=== PATIENT | female | born 1955 | race Caucasian/White ===

== ENCOUNTER → 2023-06-02 | Outpatient (CLI) | payer MEDICARE ==
[2023-06-03 04:04] LABS: INR 3.11 sec (0.93-1.11); Prothrombin Time 31.2 sec (9.9-11.9)
== END | disposition home or self-care (01) ==
LOC: LABWHC1 14:04
DX: Z51.81 Encounter for therapeutic drug level monitoring (principal); I82.890 Acute embolism and thrombosis of other specified veins; Z79.01 Long term (current) use of anticoagulants
CPT/HCPCS: 36415; 85610

== ENCOUNTER → 2023-06-09 | Outpatient (CLI) | payer MEDICARE ==
[2023-06-09 20:38] LABS: INR 1.96 sec (0.93-1.11); Prothrombin Time 20.3 sec (9.9-11.9)
== END | disposition home or self-care (01) ==
LOC: LABWHC1 13:01
DX: Z51.81 Encounter for therapeutic drug level monitoring (principal); Z79.01 Long term (current) use of anticoagulants; I82.890 Acute embolism and thrombosis of other specified veins
CPT/HCPCS: 36415; 85610

== ENCOUNTER → 2023-08-04 | Outpatient (CLI) | payer MEDICARE ==
[2023-08-04 09:59] LABS: INR 2.2 (<1.2); Prothrombin Time 21.7 sec (10.0-12.5)
== END | disposition home or self-care (01) ==
LOC: LABWHC1 09:02
PROVIDERS: ATTEND Nurse Practitioner
DX: Z51.81 Encounter for therapeutic drug level monitoring (principal); I82.890 Acute embolism and thrombosis of other specified veins; Z79.01 Long term (current) use of anticoagulants
CPT/HCPCS: 36415; 85610

== ENCOUNTER → 2023-09-07 | Outpatient (CLI) | payer MEDICARE, BC ==
[2023-09-07 12:36] LABS: INR 2.1 (<1.2); Prothrombin Time 21.4 sec (10.0-12.5)
== END | disposition home or self-care (01) ==
LOC: LABWHC1 11:49
DX: Z51.81 Encounter for therapeutic drug level monitoring (principal); Z79.01 Long term (current) use of anticoagulants
CPT/HCPCS: 36415; 85610